=== PATIENT | male | born 1960 | race Hispanic/Latino ===

== ENCOUNTER 2018-04-07 10:24 | Outpatient (CLI) | payer MEDICARE | END 2018-04-07 10:25 | disposition home or self-care (01) | LOC: BICULT 10:24 | PROVIDERS: ATTEND Internal Medicine Gastroenterology | DX: K22.70 Barrett's esophagus without dysplasia (principal); K21.9 Gastro-esophageal reflux disease without esophagitis; E55.9 Vitamin D deficiency, unspecified; R74.8 Abnormal levels of other serum enzymes; R16.0 Hepatomegaly, not elsewhere classified; Z98.84 Bariatric surgery status | CPT/HCPCS: 76705 ==

== ENCOUNTER 2018-04-25 17:48 | Emergency (ER) | payer MEDICARE ==
[~2018-04-25 17:48] MED LIST: EPINEPHrine 1 MG/10 ML Abboject SYRINGE ONE; Naloxone HCl 0.4 mg/ml Vial ONE
== END 2018-04-25 20:34 | disposition expired ==
LOC: ERS 17:48
DX: I46.9 Cardiac arrest, cause unspecified (principal)
CPT/HCPCS: 92950; 94760; 96374; J0171; J2310